=== PATIENT | male | born 1965 | race African-American/Black ===

== ENCOUNTER 2016-06-07 07:06 | Emergency (ER) | payer OTHER ==
[~2016-06-07] VITALS: Ht 198.1 cm; Wt 80.0 kg
[2016-06-07 08:06] LABS: microscopic required? NO
[2016-06-07 08:07] LABS: BASOPHIL % 0.3 % (0-2); PLATELET COUNT 341 x10^3mcL (130-400); RED CELL DISTRIBUTION WIDTH 13.1 % (11.5-14.5)
[2016-06-07 08:09] LABS: CALCIUM 8.9 mg/dL (8.5-10.1); CARBON DIOXIDE 26.8 mmol/L (21-32); CHLORIDE SERUM 106 mmol/L (98-107); CREATININE SERUM 1.1 mg/dL (0.7-1.3); GFR1 > 60 mL/min; GLUCOSE SERUM 110 mg/dL (74-106); POTASSIUM SERUM 3.7 mmol/L (3.5-5.1); SODIUM SERUM 139 mmol/L (136-145)
[2016-06-07 08:14] LABS: ALBUMIN 3.4 g/dL (3.4-5.0); ALKALINE PHOSPHATASE 55 U/L (46-116); ALT/SGPT 18 U/L (16-63); AST/SGOT 19 U/L (15-37); BILIRUBIN TOTAL 0.32 mg/dL (0.20-1.00); TOTAL PROTEIN, SERUM 7.5 g/dL (6.4-8.2)
[2016-06-07 08:19] LABS: UA SPECIFIC GRAVITY 1.015 (1.005-1.035); urine erythrocyte NEGATIVE (NEGATIVE)
[2016-06-07 11:28] VITALS: BP 138/84
== END 2016-06-07 11:28 | disposition home or self-care (01) ==
LOC: ED 07:06
PROVIDERS: Emergency Medicine
DX: R10.13 Epigastric pain (principal); N50.1 Vascular disorders of male genital organs; R11.10 Vomiting, unspecified; I10 Essential (primary) hypertension; I48.91 Unspecified atrial fibrillation; Z79.899 Other long term (current) drug therapy; Z87.19 Personal history of other diseases of the digestive system; Z88.5 Allergy status to narcotic agent; Z91.010 Allergy to peanuts
CPT/HCPCS: 87491; 87591; J1170; J1885

== ENCOUNTER 2016-06-10 09:38 | Emergency (ER) | payer OTHER ==
[~2016-06-10] VITALS: Ht 198.1 cm; Wt 83.1 kg
[2016-06-10 11:42] VITALS: BP 158/70
== END 2016-06-10 11:42 | disposition home or self-care (01) ==
LOC: ED 09:38
DX: R10.13 Epigastric pain (principal); I10 Essential (primary) hypertension; I48.91 Unspecified atrial fibrillation; Z88.5 Allergy status to narcotic agent

== ENCOUNTER 2016-06-12 07:27 | Emergency (ER) | payer OTHER ==
[~2016-06-12] VITALS: Ht 198.1 cm; Wt 83.0 kg
[2016-06-12 08:06] VITALS: BP 146/87
== END 2016-06-12 08:06 | disposition home or self-care (01) ==
LOC: ED 07:27
DX: N50.1 Vascular disorders of male genital organs (principal)